=== PATIENT | male | born 2000 | race Caucasian/White ===

== ENCOUNTER 2023-10-26 17:31 | Inpatient (IN) ==
[2023-10-26] MEDS ORDERED: Lactated Ringers 1000 ml BAG 1,000 ML IV ONE (17:36)
[2023-10-26 18:12] LABS: INR 1.22 (0.83-1.13)
[2023-10-26 18:14] LABS: Hematocrit 21.7 % (38-53); Hemoglobin 6.4 g/dL (13.2-16.3); Mean Corpuscular Hemoglobin 18.2 pg (27-33); Mean Corpuscular Hgb Conc 29.4 g/dL (31-36); Mean Corpuscular Volume 61.8 fL (80-97); Mean Platelet Volume 6.7 fL (7.5-11.2); Platelet Count 593 10^3/uL (150-450); Red Blood Count 3.51 10^6/uL (4.06-5.63); Red Cell Distribution Width 16.6 % (12-17)
[2023-10-26 18:23] LABS: Albumin 3.4 g/dL (3.2-5.2); Albumin/Globulin Ratio 1.1 (1-3); C Reactive Protein 59.12 mg/L (<8.01); Calcium 8.6 mg/dL (8.6-10.3); Creatinine, Serum 0.88 mg/dL (0.67-1.17); Potassium 3.9 mmol/L (3.5-5.0); Total Bilirubin 0.2 mg/dL (0.2-1.0); Total Protein 6.4 g/dL (6.4-8.9); eGFR CKD-EPI 124.7 (>60)
[2023-10-26 18:33] LABS: ABS Basophils 0.1 10^3/uL (0.0-0.1); ABS Eosinophils 0.2 10^3/uL (0.0-0.5); ABS Lymphocytes 2.7 10^3/uL (1.0-4.8); ABS Neutrophils 4.1 10^3/uL (1.5-7.6); ABS Nucleated RBC 0.01 10^3/ul; Anisocytosis 2+; Eosinophil % 2.1 %; Hypochromasia 2+; Lymphocyte % 33.9 %; Microcytosis 2+; Nucleated Red Blood Cells % 0.2 %/100WBC (0.0-0.8)
[2023-10-26] MEDS ORDERED: Iohexol 350 (CONTRAST) 500 ML MDV IV ONE (19:42)
[2023-10-26 22:20] LABS: % Iron Saturation 7 % (15-55); .Transferrin 213 mg/dL (203-362); Iron < 20 ug/dL (50-212); Total Iron Binding Capacity 298 mcg/dL (250-450); Unsaturated Iron Binding 278 ug/dL
[2023-10-26 22:42] LABS: Ferritin 3.7 ng/mL (24-336)
[2023-10-27] MEDS: methylPREDNISolone SOD SUCC 40 mg/ml 1 ml VIAL IV SCH ×4 (01:02→18:04)
[2023-10-27 06:14] LABS: ABS Lymphocytes 1.6 10^3/uL (1.0-4.8); ABS Monocytes 0.2 10^3/uL (0.0-1.1); ABS Neutrophils 6.1 10^3/uL (1.5-7.6); ABS Nucleated RBC 0.01 10^3/ul; Hematocrit 24.5 % (38-53); Hemoglobin 7.4 g/dL (13.2-16.3); Lymphocyte % 19.9 %; Mean Corpuscular Hemoglobin 19.4 pg (27-33); Mean Corpuscular Hgb Conc 30.4 g/dL (31-36); Mean Corpuscular Volume 63.9 fL (80-97); Mean Platelet Volume 7.1 fL (7.5-11.2); Nucleated Red Blood Cells % 0.2 %/100WBC (0.0-0.8); Platelet Count 541 10^3/uL (150-450); Red Blood Count 3.83 10^6/uL (4.06-5.63); Red Cell Distribution Width 18.6 % (12-17); White Blood Count 7.9 10^3/uL (3.6-10.2)
[2023-10-27] MEDS ORDERED: Iron Sucrose 200 MG in NS 0.9% 100 ml BAG 100 ML IVPB ONE (06:19)
[2023-10-27 06:25] LABS: Calcium 8.9 mg/dL (8.6-10.3); Creatinine, Serum 0.73 mg/dL (0.67-1.17); Potassium 4.2 mmol/L (3.5-5.0); eGFR CKD-EPI 131.9 (>60)
[2023-10-27] MEDS ORDERED: fentaNYL 100 mcg/2 ml 50 MCG/ML VIAL ONE (14:18)
[2023-10-27] MEDS ORDERED: Midazolam 10 mg/10 ml VIAL 1 mg/ml 10 ml VIAL (10 mg) ONE (14:18)
[2023-10-27] MEDS ORDERED: Lidocaine 2% JELLY 6 ML Topical TOPICAL PRN (14:42)
[2023-10-27] MEDS ORDERED: Midazolam 10 mg/10 ml VIAL 1 mg/ml 10 ml VIAL (10 mg) IV SLOW PU ONE (14:42)
[2023-10-27] MEDS ORDERED: Naloxone 0.4 mg VIAL 0.4 mg/ml 1 ml VIAL IV PUSH PRN (14:42)
[2023-10-27] MEDS ORDERED: Ondansetron 4 mg VIAL 2 MG/ML 2 ml VIAL IV PRN (14:42)
[2023-10-27] MEDS ORDERED: Flumazenil 0.5 mg/5 ml 0.1 MG/ML 5 ml VIAL IV PRN (14:42)
[2023-10-27] MEDS ORDERED: Lactated Ringers 1000 ml BAG 1,000 ML IV ONE (14:42)
[2023-10-27] MEDS ORDERED: fentaNYL 100 mcg/2 ml 50 MCG/ML VIAL IV SLOW PU ONE (14:42)
[2023-10-28] MEDS: methylPREDNISolone SOD SUCC 40 mg/ml 1 ml VIAL IV SCH ×4 (00:30→17:57)
[2023-10-28 07:23] LABS: ABS Lymphocytes 1.2 10^3/uL (1.0-4.8); ABS Monocytes 0.6 10^3/uL (0.0-1.1); ABS Nucleated RBC 0.01 10^3/ul; Hematocrit 23.2 % (38-53); Lymphocyte % 15.7 %; Mean Corpuscular Hemoglobin 19.3 pg (27-33); Mean Corpuscular Hgb Conc 30.3 g/dL (31-36); Mean Corpuscular Volume 63.8 fL (80-97); Mean Platelet Volume 7.1 fL (7.5-11.2); Nucleated Red Blood Cells % 0.1 %/100WBC (0.0-0.8); Platelet Count 576 10^3/uL (150-450); Red Blood Count 3.63 10^6/uL (4.06-5.63); Red Cell Distribution Width 18.1 % (12-17); White Blood Count 7.9 10^3/uL (3.6-10.2)
[2023-10-28 07:37] LABS: C Reactive Protein 30.97 mg/L (<8.01); Calcium 8.6 mg/dL (8.6-10.3); Creatinine, Serum 0.76 mg/dL (0.67-1.17); Potassium 4.5 mmol/L (3.5-5.0); eGFR CKD-EPI 130.3 (>60)
[2023-10-28] MEDS ORDERED: NS 0.9% IVPB ONE (09:26)
[2023-10-28] MEDS ORDERED: FERRIC GLUCONATE IVPB ONE (09:26)
[2023-10-29] MEDS: methylPREDNISolone SOD SUCC 40 mg/ml 1 ml VIAL IV SCH (01:35)
[2023-10-29] MEDS ORDERED: NS 0.9% IVPB ONE (08:57)
[2023-10-29] MEDS ORDERED: FERRIC GLUCONATE IVPB ONE (08:57)
[2023-10-29 09:09] LABS: C Reactive Protein 19.59 mg/L (<8.01); Calcium 8.9 mg/dL (8.6-10.3); Creatinine, Serum 0.84 mg/dL (0.67-1.17); Potassium 4.2 mmol/L (3.5-5.0); eGFR CKD-EPI 126.4 (>60)
[2023-10-29 09:25] LABS: Hematocrit 26.3 % (38-53); Hemoglobin 7.6 g/dL (13.2-16.3); Mean Corpuscular Hemoglobin 19.2 pg (27-33); Mean Corpuscular Hgb Conc 28.9 g/dL (31-36); Mean Corpuscular Volume 66.3 fL (80-97); Mean Platelet Volume 7.7 fL (7.5-11.2); Platelet Count 585 10^3/uL (150-450); Red Blood Count 3.97 10^6/uL (4.06-5.63); Red Cell Distribution Width 19.2 % (12-17); White Blood Count 14.2 10^3/uL (3.6-10.2)
[2023-10-29 10:40] LABS: ABS Monocytes 1.3 10^3/uL (0.0-1.1); ABS Neutrophils 10.8 10^3/uL (1.5-7.6); ABS Nucleated RBC 0.05 10^3/ul; Anisocytosis 2+; Eosinophil % 0.2 %; Hypochromasia 3+; Lymphocyte % 14.3 %; Microcytosis 3+; Nucleated Red Blood Cells % 0.3 %/100WBC (0.0-0.8); Polychromasia 1+
[2023-10-29 14:46] VITALS: BP 124/65
[2023-10-29 14:47] LABS: Adenovirus F40/41 Negative (Negative); Astrovirus Negative (Negative); Cryptosporidium species Negative (Negative); Cyclospora cayetanensis Negative (Negative); Entamoeba histolytica Negative (Negative); Enteroaggregative E.coli(EAEC) Negative (Negative); Enteropathogenic Ecoli(EPEC) Negative (Negative); Enterotoxigenic Ecoli(ETEC) Negative (Negative); Norovirus GI/GII Negative (Negative); Plesiomonas shigelloides Negative (Negative); Salmonella species Negative (Negative); Sapovirus Negative (Negative); Shiga toxin producing E. coli Negative (Negative); Shigella/Enteroinvasive E.coli Negative (Negative); Specimen Source STOOL; Vibrio cholerae Negative (Negative); Yersinia species Negative (Negative)
[2023-10-29 15:34] LABS: CMV DNA DETECT/QT, P Undetected IU/mL (Undetected)
[2023-10-31 17:56] LABS: Calprotectin 1251 mcg/g
== END 2023-10-29 16:00 | disposition home or self-care (01) | DRG 245 ==
LOC: ED 17:31 → SUATTDRO 20:33 → EDHOLD 20:33 → SSU 22:14
PROVIDERS: ADMIT Internal Medicine; ATTEND Student in an Organized Health Care Education/Training Program